=== PATIENT | female | born 1955 | race Caucasian/White ===

== ENCOUNTER 2020-01-07 05:18 | Observation (INO) ==
[2020-01-07] MEDS ORDERED: KEFZOL 1 GM/D5W 2 GM/100 ML IVPB ONE (05:40)
[2020-01-07] MEDS ORDERED: LR 1,000 ML ONE (05:42)
[2020-01-07] MEDS ORDERED: DIPRIVAN 1% ONE (06:33)
[2020-01-07] MEDS ORDERED: FENTANYL ONE (06:33)
[2020-01-07] MEDS ORDERED: ROBINUL ONE ×2 (06:35→06:52)
[2020-01-07] MEDS ORDERED: XYLOCAINE-MPF 2% ONE (06:35)
[2020-01-07] MEDS ORDERED: QUELICIN (DOSE) ONE (06:35)
[2020-01-07] MEDS ORDERED: REGLAN ONE (06:51)
[2020-01-07] MEDS ORDERED: PEPCID ONE (06:51)
[2020-01-07] MEDS ORDERED: XYLOCAINE 1% ONE (07:52)
[2020-01-07] MEDS ORDERED: MARCAINE 0.5% PF ONE (07:52)
[2020-01-07] MEDS ORDERED: OFIRMEV 1000 MG/ISOTONIC SOLN 1,000 MG/100 ML BOTTLE ONE (08:00)
[2020-01-07] MEDS ORDERED: ZOFRAN ONE (08:00)
[2020-01-07] MEDS ORDERED: PHENERGAN ONE (08:01)
[2020-01-07] MEDS ORDERED: NORCO-5 ONE (08:57)
[2020-01-07] MEDS ORDERED: PERCOCET-5 ONE (10:04)
[2020-01-07] MEDS ORDERED: WELCHOL PO PRN (10:56)
[2020-01-07] MEDS: OXY IR PO PRN ×3 (11:33→20:39)
[2020-01-07] MEDS: KEFZOL 1 GM/D5W 1 GM/50 ML IVPB IV SCH ×2 (15:28→20:42)
[2020-01-07] MEDS ORDERED: NS 500 ML ONE (15:33)
[2020-01-07] MEDS ORDERED: PNEUMOVAX 23 IM ONE (16:15)
[2020-01-07] MEDS: MORPHINE IV PRN ×3 (16:29→22:42)
[2020-01-07] MEDS: GLUCOPHAGE PO SCH (17:11)
--- NOTE | 2020-01-07 18:13 | OPERATIVE NOTE ---
PROCEDURE DATE: 01/07/2020 PREOPERATIVE DIAGNOSES: 1. Right Achilles tendinosis and tearing. 2. Right calcaneal spur. POSTOPERATIVE DIAGNOSIS: 1. Right Achilles tendinosis and tearing. 2. Right calcaneal spur. PROCEDURE: 1. Right Achilles debridement and repair. 2. Right calcaneal spur excision. SURGEON: Tapan Cardona MD. LASTING ROOM SUPERVISOR: MARGARITO Espinoza, who was an integral part of the case, helping with all aspects of the case, helping increase our OR efficiency greatly. ANESTHESIA: General with endotracheal intubation. TOURNIQUET TIME: Less than an hour. IMPLANTS: [employer] suture anchor and knotless anchor. DISPOSITION: To PACU hemodynamically stable. INDICATION FOR PROCEDURE: Ms. Lucas is a 64-year-old female, who I have seen in clinic for evaluation of this right heel pain. We worked her up even with MRI which showed some tearing in a very large calcaneal spur. I discussed with her about operative intervention since she has failed nonoperative treatment and she wanted to proceed with surgery. DESCRIPTION OF THE PROCEDURE: Ms. Lucas was identified in the holding area. The right foot was marked as correct surgical site. She was then wheeled to the operating room, kept supine on her own bed. She was induced under general anesthesia. Endotracheal tube was placed. She was then flipped prone on the OR table. All bony prominences were checked and well padded. Tourniquet was placed to the right thigh. Right lower extremity then prepped with chlorhexidine, gluconate scrub and then ChloraPrep, and draped in normal sterile fashion. Surgical pause was performed. We identified the correct patient, correct side, and the correct procedure. Preop antibiotics were given. Esmarch was used to exsanguinate the right lower extremity and tourniquet was inflated 300 mmHg. I started with a longitudinal incision just lateral to midline. Dissection was carried down on the lateral edge of the Achilles tendon. I peeled off the Achilles tendon from the calcaneus from lateral to medial, keeping the most medial attachment intact. We revealed that very large calcaneal spur that was present. Once we got it exposed, I was able to then used a sagittal saw and resected the large spur and then resected a little bit more that posterior calcaneal bone to decompress that whole area. I felt we had a really good decompression. That completed our calcaneal spur excision. I then cleaned up the tendon and debrided it. We did not excise more than 50% of the tendon, so I did not we needed to do an F[facility] transfer. I then used 2 bone suture anchors within the calcaneus and then sewed the Achilles tendon back down to bone. Then using a speed bridge technique and 2 knotless anchors, I was able to finish putting the rest of the Achilles down on bone, so we had a nice large surface area right on raw bone for good healing. Palpating posteriorly, everything seemed nice and smooth. I did not see or feel any bony prominences. We then closed the paratenon with 2-0 Vicryl, 2-0 Vicryl for the subcutaneous and nylon on the skin. Adaptic, 4 x 4s, ABD, soft roll, posterior splint was applied. Tourniquet was let down. She has good cap refill return to the toes. She was then wheeled from general anesthesia, moved to her own bed and taken to PACU in stable condition. PLAN: Postop she will be nonweightbearing right lower extremity. I will see her in a week in clinic. cc: Tapan Cardona MD
[2020-01-07] MEDS: PRILOSEC PO SCH (20:39)
[2020-01-07] MEDS: DITROPAN PO SCH (20:39)
[2020-01-08] MEDS: MORPHINE IV PRN ×2 (01:50→12:07)
[2020-01-08] MEDS: KEFZOL 1 GM/D5W 1 GM/50 ML IVPB IV SCH ×2 (02:29→06:48)
[2020-01-08] MEDS: OXY IR PO PRN ×3 (06:48→21:20)
[2020-01-08] MEDS: LOVENOX SUBQ SCH (06:48)
[2020-01-08] MEDS: DITROPAN PO SCH ×2 (08:33→20:16)
[2020-01-08] MEDS: GLUCOPHAGE PO SCH ×2 (08:33→17:31)
[2020-01-08] MEDS: SYNTHROID PO SCH (08:33)
[2020-01-08] MEDS: JARDIANCE PO SCH (08:34)
[2020-01-08] MEDS: AVAPRO PO SCH (08:34)
--- NOTE | 2020-01-08 12:05 | ORTHOPAEDICS PROGRESS NOTE ---
DATE: 01/08/2020 SUBJECTIVE DATA: Ms. Lucas is sitting in bed. She states she is having quite a bit of pain to the right lower extremity. OBJECTIVE DATA: Right lower extremity exam: She has her surgical splint in place. It is clean, dry, and intact. She has good sensation to the toes. She is able to move them well. She has good capillary refill. Vital Signs: Temperature is 98.2 degrees, pulse is 93, respirations 17, blood pressure 141/72. She is 98% on room air. ASSESSMENT: Status post right Achilles tendon debridement and repair. PLAN: Ms Lucas has had some issues with blood pressure preoperatively. Prior to surgery, she actually was sent to the ER for a hypertensive crisis. After her surgery yesterday, her blood pressure was running in the 180s. It is now a little more controlled in the 140s. We are going to follow the blood pressure just to make sure it evens out. She is also a type 2 diabetic and while her control has been better, she still had some elevated sugars in house. She also states that she does not have any help at home. Her has a lot of back issues and will not be able to assist her. She will be nonweightbearing to this right lower extremity and she has a lot of concerns about mobilizing in her home. Because of these reasons, we are going to consult [employer] and see about getting her set up for rehab placement. We do think this would be most beneficial for her and also the safest, so we will get that done today and see if we can get her set up for rehab placement. Dictated by MARGARITO Espinoza for Tapan Cardona MD cc: MARGARITO Espinoza MD [facility]
[2020-01-08] MEDS: ZOFRAN IV PRN (12:18)
--- NOTE | 2020-01-08 19:09 | Diag Imaging Result Doc PS360 ---
EXAM: CHEST-PORTABLE HISTORY: rehab placement TECHNIQUE: Single view COMPARISON: 12/11/2017 FINDINGS: Poor inspiratory effort. The heart is not enlarged. The vessels are not distended. There are no infiltrates. No effusion identified. IMPRESSION: Negative exam. Electronically signed by Guy Lamb 01/08/2020 7:07 PM
[2020-01-08] MEDS: PRILOSEC PO SCH (20:16)
[2020-01-09] MEDS: OXY IR PO PRN ×4 (05:22→18:25)
[2020-01-09] MEDS: LOVENOX SUBQ SCH (05:23)
[2020-01-09] MEDS: JARDIANCE PO SCH (08:55)
[2020-01-09] MEDS: GLUCOPHAGE PO SCH ×2 (08:56→18:26)
[2020-01-09] MEDS: AVAPRO PO SCH (08:56)
[2020-01-09] MEDS: DITROPAN PO SCH ×2 (08:56→20:05)
[2020-01-09] MEDS: SYNTHROID PO SCH (08:56)
--- NOTE | 2020-01-09 11:55 | ORTHOPAEDICS PROGRESS NOTE ---
DATE: 01/09/2020 Ms. Lucas is seen status post debridement of the right Achilles tendon. At the present time she is afebrile with stable vital signs. Her splint is clean and dry. She is awaiting rehab placement at this point in time. We will continue to mobilize as tolerated. She is stable currently. cc: MD Tapan Mcwilliams MD
[2020-01-09] MEDS: ZOFRAN IV PRN (13:16)
[2020-01-09] MEDS: PRILOSEC PO SCH (20:05)
[2020-01-10] MEDS: LOVENOX SUBQ SCH (05:30)
--- NOTE | 2020-01-10 10:54 | ORTHOPAEDICS PROGRESS NOTE ---
DATE: 01/10/2020 SUBJECTIVE: Ms. Lucas is seen today status post Achilles tendon debridement. OBJECTIVE: Her vital signs were all stable. Her bandage is clean and dry. There is good capillary refill. Blood pressure appears to be in better control. ASSESSMENT: Currently, she is being mobilized. She is awaiting rehab placement. Hopefully a bed will be available tomorrow on Saturday. She appears to be medically stable and suitable for transfer to convalescent care at this point. cc: MD Tapan Mcwilliams MD
[2020-01-10] MEDS: JARDIANCE PO SCH (12:46)
[2020-01-10] MEDS: GLUCOPHAGE PO SCH ×2 (12:46→17:32)
[2020-01-10] MEDS: SYNTHROID PO SCH (12:46)
[2020-01-10] MEDS: AVAPRO PO SCH (12:46)
[2020-01-10] MEDS: DITROPAN PO SCH ×2 (12:46→20:15)
[2020-01-10] MEDS: OXY IR PO PRN ×2 (17:32→20:20)
[2020-01-10] MEDS: PRILOSEC PO SCH (20:15)
[2020-01-11] MEDS: LOVENOX SUBQ SCH (05:17)
[2020-01-11] MEDS: OXY IR PO PRN ×2 (05:26→14:24)
[2020-01-11] MEDS: GLUCOPHAGE PO SCH (09:07)
[2020-01-11] MEDS: SYNTHROID PO SCH (09:07)
[2020-01-11] MEDS: JARDIANCE PO SCH (09:07)
[2020-01-11] MEDS: AVAPRO PO SCH (09:07)
[2020-01-11] MEDS: DITROPAN PO SCH (09:07)
[2020-01-11] MEDS ORDERED: DIFLUCAN PO ONE (12:35)
--- NOTE | 2020-01-11 14:01 | ORTHOPAEDICS PROGRESS NOTE ---
DATE: 01/11/2020 SUBJECTIVE: Ms. Lucas sitting in bedside chair today. Overall she is feeling well. OBJECTIVE: Right lower extremity exam, splint is clean, dry, and intact. She is able to move the toes well up and down. She has good sensation to light touch to the toes and good capillary refill to the toes. ASSESSMENT: Status post right Achilles debridement repair and calcaneus spur excision. PLAN: We are waiting on our licensed social worker team to find placement for Ms. Lucas. She will remain nonweightbearing right lower extremity and then I will see her in about a week in clinic once she is discharged. cc: Tapan Cardona MD
[2020-01-12] MEDS: PRILOSEC PO SCH ×2 (00:13→20:56)
[2020-01-12] MEDS: DITROPAN PO SCH ×3 (00:13→20:56)
[2020-01-12] MEDS: LOVENOX SUBQ SCH (05:30)
[2020-01-12] MEDS: SYNTHROID PO SCH (09:09)
[2020-01-12] MEDS: GLUCOPHAGE PO SCH ×2 (09:09→17:25)
[2020-01-12] MEDS: AVAPRO PO SCH (09:10)
[2020-01-12] MEDS: JARDIANCE PO SCH (09:10)
--- NOTE | 2020-01-12 09:29 | ORTHOPAEDICS PROGRESS NOTE ---
DATE: 01/12/2020 SUBJECTIVE DATA: Ms. Lucas is up in the chair. Overall, she is feeling much better. Her pain is well controlled. OBJECTIVE DATA: Right lower extremity exam: Her surgical splint is still in place. It is clean, dry, and intact. She has good sensation to the toes. She is still moving well. She has good capillary refill. ASSESSMENT: Status post right Achilles tendon debridement and repair. PLAN: We are still planning on Ms. Lucas to go into rehab. We are waiting on insurance approval for that. She will be nonweightbearing to that right lower extremity. We want her follow up in clinic either Saturday or Saturday to see Dr. Cardona. We will plan on getting her weightbearing if everything looks good at that point. We will continue to follow her while she is in-house. Dictated by MARGARITO Espinoza for Tapan Cardona MD cc: MARGARITO Espinoza MD
[2020-01-12 10:30] LABS: AGAP 16; BUN 18 mg/dL (8-22); CALCIUM 9.5 mg/dL (8.8-10.2); CHLORIDE 97 mmol/L (98-107); COSMO 277; CREATININE 0.7 mg/dL (0.5-0.9); ESTIMATED GFR > 60; GLUCOSE 128 mg/dL (70-104); POTASSIUM 3.9 mmol/L (3.5-5.1); SODIUM 137 mmol/L (136-145); TCO2 24 mmol/L (25-35)
[2020-01-12] MEDS: OXY IR PO PRN (19:24)
[2020-01-13] MEDS: LOVENOX SUBQ SCH (05:22)
[2020-01-13] MEDS: GLUCOPHAGE PO SCH (08:28)
[2020-01-13] MEDS: JARDIANCE PO SCH (08:28)
[2020-01-13] MEDS: SYNTHROID PO SCH (08:28)
[2020-01-13] MEDS: AVAPRO PO SCH (08:29)
[2020-01-13] MEDS: DITROPAN PO SCH (08:29)
--- NOTE | 2020-01-13 10:11 | ORTHOPAEDICS PROGRESS NOTE ---
DATE: 01/13/2020 SUBJECTIVE: Ms. Lucas is sitting in bedside chair. Her pain is well controlled. OBJECTIVE: On right lower extremity exam, her splint is clean, dry, and intact. She is moving her toes up and down. She has good capillary refill to all the toes. ASSESSMENT: Status post right Achilles debridement repair and calcaneus spur excision. PLAN: Ms. Lucas unfortunately is still just waiting on insurance approval to be discharged to rehab. When she is discharged, then I will need to see her in about a week in clinic, and will go from the splint to a boot at that time. cc: Tapan Cardona MD
[2020-01-13] MEDS: OXY IR PO PRN (10:54)
--- NOTE | 2020-01-13 15:01 | DISCHARGE SUMMARY ---
ADMISSION DATE: 01/07/2020 DISCHARGE DATE: 01/13/2020 PROCEDURE: Right Achilles debridement and repair and calcaneal spur excision on 01/07/2020. DISCHARGE MEDICATIONS: Percocet for pain control and Aspirin for DVT prophylaxis. DISPOSITION: Discharge to rehab. FOLLOW UP APPOINTMENT: She will see Dr. Cardona in 1 week in the clinic. HOSPITAL COURSE: Ms. Lucas came in on 01/07/2020 and underwent Achilles debridement and repair and calcaneal spur excision. She was admitted postoperatively for medical management and also physical therapy. She has convalesced well. Her pain has been well under control. Physical Therapy has been working with her getting her up and moving. She will remain nonweightbearing on the right lower extremity. She will be discharged to rehab today and I will see her in 1 week in the clinic. cc: Tapan Cardona MD
[2020-01-13 15:27] VITALS: BP 128/64
== END 2020-01-13 15:45 ==
LOC: PAT 05:18 → 4N 05:18 → OPS 05:18
PROVIDERS: ATTEND Orthopaedic Surgery